=== PATIENT | female | born 1940 ===

== ENCOUNTER → 2019-04-20 06:30 | Outpatient (CLI) | payer OTHER | END | disposition home or self-care (01) | LOC: LAB 06:30 | DX: E03.8 Other specified hypothyroidism (principal); E06.3 Autoimmune thyroiditis; D51.1 Vitamin B12 deficiency anemia due to selective vitamin B12 malabsorption with proteinuria; D51.0 Vitamin B12 deficiency anemia due to intrinsic factor deficiency; I10 Essential (primary) hypertension; D51.8 Other vitamin B12 deficiency anemias; D50.8 Other iron deficiency anemias; K21.9 Gastro-esophageal reflux disease without esophagitis; H33.011 Retinal detachment with single break, right eye; N60.19 Diffuse cystic mastopathy of unspecified breast; Z80.0 Family history of malignant neoplasm of digestive organs; Z80.3 Family history of malignant neoplasm of breast ==

== ENCOUNTER → 2019-12-08 06:55 | Outpatient (CLI) | payer OTHER | END | disposition home or self-care (01) | LOC: LAB 06:55 | DX: N60.11 Diffuse cystic mastopathy of right breast (principal); N60.12 Diffuse cystic mastopathy of left breast; R97.8 Other abnormal tumor markers; R97.0 Elevated carcinoembryonic antigen [CEA]; I10 Essential (primary) hypertension; D51.8 Other vitamin B12 deficiency anemias; D50.8 Other iron deficiency anemias; K21.9 Gastro-esophageal reflux disease without esophagitis; H33.011 Retinal detachment with single break, right eye; Z80.0 Family history of malignant neoplasm of digestive organs ==